=== PATIENT | female | born 1950 | race African-American/Black ===

== ENCOUNTER 2017-07-13 14:02 | Emergency (ER) | payer MEDICARE, OTHER ==
[~2017-07-13] VITALS: Ht 165.1 cm; Wt 122.5 kg
[~2017-07-13 14:02] MED LIST: ASPI-556 PO; ATOR20TA86 PO; VALS160T2 PO; VERA80 PO
[2017-07-13] MEDS ORDERED: LOVA40TA2 PO (14:15)
[2017-07-13] MEDS ORDERED: HYDROCODONE/ACETAMINOPHEN 5-325 MG TABLET PO ONE (14:45)
[2017-07-13 16:23] VITALS: BP 128/68
== END 2017-07-13 17:21 | disposition home or self-care (01) ==
LOC: EMS 14:06
DX: S93.401A Sprain of unspecified ligament of right ankle, initial encounter (principal); M10.9 Gout, unspecified; I10 Essential (primary) hypertension; I25.2 Old myocardial infarction; I25.10 Atherosclerotic heart disease of native coronary artery without angina pectoris; Z79.82 Long term (current) use of aspirin; Z88.0 Allergy status to penicillin; X58.XXXA Exposure to other specified factors, initial encounter; Y93.89 Activity, other specified; Y92.89 Other specified places as the place of occurrence of the external cause; Y99.8 Other external cause status
CPT/HCPCS: 84550; 99285